=== PATIENT | male | born 1950 | race Two or more races ===

== ENCOUNTER 2017-11-01 10:47 | Emergency (ER) | payer MEDICARE ==
[2017-11-01] MEDS ORDERED: Sodium Chloride 0.9% 1,000 ML IV STA (11:11)
--- NOTE | 2017-11-01 11:13 | ED PDOC ---
Arrival/HPI - General Chief Complaint: Flu-like Symptoms Time Seen by Provider: 11/01/17 10:49 Historian: Patient - History of Present Illness Narrative History of Present Illness (Text): 11/01/17 11:10 A 67 year old male, whose past medical history includes diabetes and hypertension, presents to the emergency department complaining of nausea, vomiting and diarrhea for "a long period of time". Patient denies any fever, chills, abdominal pain, urinary symptoms, hematochezia, chest pain, shortness of breath or any other complaints. PMD: Dr. Grey Time/Duration: Other Context: Home Past Medical History - Provider Review Nursing Documentation Reviewed: Yes - Infectious Disease Hx of Infectious Diseases: None - Cardiac Hx Cardiac Disorders: Yes Hx Hypertension: Yes - Pulmonary Hx Respiratory Disorders: No - Neurological Hx Neurological Disorder: Yes Other/Comment: neuropathy - HEENT Hx HEENT Disorder: No - Renal Hx Renal Disorder: No - Endocrine/Metabolic Hx Endocrine Disorders: Yes Hx Diabetes Mellitus Type 2: Yes - Hematological/Oncological Hx Blood Disorders: No - Integumentary Hx Dermatological Disorder: No - Musculoskeletal/Rheumatological Hx Musculoskeletal Disorders: No - Gastrointestinal Hx Gastrointestinal Disorders: No - Genitourinary/Gynecological Hx Genitourinary Disorders: No - Psychiatric Hx Psychophysiologic Disorder: No Hx Substance Use: No - Anesthesia Hx Anesthesia: Yes Family/Social History - Physician Review Nursing Documentation Reviewed: Yes Family/Social History: No Known Family HX Smoking Status: Never Smoked Hx Alcohol Use: No Hx Substance Use: No Allergies/Home Meds Allergies/Adverse Reactions: Allergies No Known Allergies Allergy (Verified 11/01/17 10:53) Home Medications: Home Meds Medication Instructions Recorded Confirmed Aspirin [Adult Aspirin Regimen] 81 mg PO DAILY 11/01/17 11/01/17 Atorvastatin [Lipitor] 40 mg PO DAILY 11/01/17 11/01/17 Cholecalciferol (Vitamin D3) 1,000 mg PO DAILY 11/01/17 11/01/17 [Children's Vitamin D3] Ferrous Sulfate [Feosol] 1 tab PO BID 11/01/17 11/01/17 Furosemide [Lasix] 20 mg PO MWF 11/01/17 11/01/17 Gabapentin [Neurontin] 300 mg PO TID 11/01/17 11/01/17 GlipiZIDE [Glucotrol] 10 mg PO DAILY 11/01/17 11/01/17 Hydrochlorothiazide [Microzide] 25 mg PO DAILY 11/01/17 11/01/17 Insulin Aspart [Novolog Flexpen] 45 units SQ BID 11/01/17 11/01/17 Losartan [Cozaar] 100 mg PO DAILY 11/01/17 11/01/17 NIFEdipine [Procardia] 60 mg PO DAILY 11/01/17 11/01/17 Nortriptyline HCl [Pamelor] 50 mg PO HS 11/01/17 11/01/17 Omeprazole [Omeprazole] 20 mg PO BID 11/01/17 11/01/17 Sildenafil Citrate [Viagra] 25 mg PO PRN PRN 11/01/17 11/01/17 Syringe and Needle,Insulin,1Ml 1 ml SC 5XD 11/01/17 11/01/17 [Insulin Syringe] Review of Systems - Physician Review All systems were reviewed & negative as marked: Yes - Review of Systems Constitutional: absent: Fevers, Night Sweats Respiratory: absent: SOB Cardiovascular: absent: Chest Pain Gastrointestinal: Diarrhea, Nausea, Vomiting. absent: Abdominal Pain, Hematochezia Genitourinary Male: absent: Dysuria, Frequency, Hematuria, Urinary Output Changes Physical Exam Vital Signs Reviewed: Yes Vital Signs Temp Pulse Resp BP Pulse Ox 11/01/17 12:46 94 H 18 180/85 H 100 11/01/17 11:41 100.0 F H 11/01/17 11:19 98.3 F 11/01/17 11:09 98.3 F 117 H 22 185/97 H 100 Temperature: Afebrile Blood Pressure: Hypertensive Pulse: Tachycardic Respiratory Rate: Normal Appearance: Positive for: Well-Appearing, Non-Toxic, Comfortable Pain Distress: None Mental Status: Positive for: Alert and Oriented X 3 - Systems Exam Head: Present: Atraumatic, Normocephalic Pupils: Present: PERRL Extroacular Muscles: Present: EOMI Conjunctiva: Present: Normal Mouth: Present: Moist Mucous Membranes Neck: Present: Normal Range of Motion Respiratory/Chest: Present: Clear to Auscultation, Good Air Exchange. No: Respiratory Distress, Accessory Muscle Use Cardiovascular: Present: Normal S1, S2, Tachycardic. No: Murmurs Abdomen: Present: Normal Bowel Sounds. No: Tenderness, Distention, Peritoneal Signs Back: Present: Normal Inspection Upper Extremity: Present: Normal Inspection. No: Cyanosis, Edema Lower Extremity: Present: Normal Inspection. No: Edema Neurological: Present: GCS=15, CN II-XII Intact, Speech Normal Skin: Present: Warm, Dry, Normal Color. No: Rashes Psychiatric: Present: Alert, Oriented x 3, Normal Insight, Normal Concentration Medical Decision Making ED Course and Treatment: 11/01/17 11:10 Impression: A 67 year old male with nausea, vomiting and diarrhea Plan: -- Chest xray -- EKG -- Labs -- Urinalysis -- Influenza A B Stat -- Tylenol and IV fluids -- Reassess and disposition Progress Notes: EKG shows sinus tachycardia at 112 BPM. Interpreted by me. Report Date : 11/01/2017 12:30:01 Procedure: Chest xray Dictator : Bart Julien MD IMPRESSION: No active disease. Report Date : 11/01/2017 14:29:02 PROCEDURE: CT Abdomen and Pelvis without intravenous contrast Dictator : Bart Julien MD IMPRESSION: No acute findings 11/01/17 14:[address] Grey, who is aware of and in agreement with plan. Patients CT, imaging and labs are negative. Patient feels better and is in no acute distress. I have discussed the results and plan with the patient, who expresses understanding. Patient in agreement with plan to be discharged home. Patient is stable for discharge. Patient was instructed to follow up with physician or return if symptoms worsen or new concerning symptoms arise. - Lab Interpretations Lab Results: 11/01/17 11:05 11/01/17 11:05 Lab Results 11/01/17 11:30: Urine Color Yellow, Urine Appearance Clear, Urine pH 6.0, Ur Specific [place] 1.020, Urine Protein 100 H, Urine Glucose (UA) 250 H, Urine Ketones Negative, Urine Blood Moderate H, Urine Nitrate Negative, Urine Bilirubin Negative, Urine Urobilinogen 0.2, Ur Leukocyte Esterase Negative, Urine RBC 20 - 25, Urine WBC 0 - 2, Ur Epithelial Cells None, Urine Bacteria Many, Hyaline Casts 0 - 2, Coarse Granular Casts Trace H 11/01/17 11:05: Influenza Typ A,B (EIA) Negative for flu a/b 11/01/17 11:05: Sodium 137, Chloride 102, Potassium 4.9, Carbon Dioxide 24, Anion Gap 16, BUN 42 H, Creatinine 2.6 H, Est GFR ( Amer) 30, Est GFR ( Non-Af Amer) 25, Random Glucose 229 H, Calcium 9.9, Total Bilirubin 0.7, AST 55 , ALT 78 H, Alkaline Phosphatase 86, Lactate Dehydrogenase 597, Total Creatine Kinase 446 H, CK-MB (CK-2) 8.8 H, CK-MB (CK-2) % 2.0 L, Troponin I < 0.01, Total Protein 8.4 H, Albumin 4.7, Globulin 3.7, Albumin/Globulin Ratio 1.2, Amylase 87, Lipase 103 11/01/17 11:05: PT 13.0 H, INR 1.18 H, APTT 29.4 11/01/17 11:05: WBC 9.0, RBC 3.83, Hgb 10.9 L, Hct 33.3 L, MCV 86.9, MCH 28.5, MCHC 32.7, RDW 14.8 H, Plt Count 226, MPV 11.2 H, Gran % 89.3 H, Lymph % (Auto) 2.5 L, [place] % (Auto) 8.1 H, Eos % (Auto) 0.1 L, Baso % (Auto) 0.0, Gran # 8.06 H , Lymph # 0.2 L, [place] # 0.7 H, Eos # 0.0, Baso # 0.00, Neutrophils % (Manual) 88 H, Lymphocytes % (Manual) 8 L, Monocytes % (Manual) 4, Platelet Evaluation Normal, Hypochromasia Slight, Anisocytosis (manual) Slight 11/01/17 11:05: pO2 22 L, VBG pH 7.33, VBG pCO2 48.0, VBG HCO3 25.3, VBG Total CO2 26.8, VBG O2 Sat (Calc) 47.8, VBG Base Excess -1.1 L, VBG Potassium 5.1, Sodium 137.0, Chloride 103.0, Glucose 240 H, Lactate 1.7, FiO2 21.0, Venous Blood Potassium 5.1 I have reviewed the lab results: Yes - RAD Interpretation Radiology Orders: 11/01/17 11:10 CHEST PORTABLE [RAD] Stat 11/01/17 12:04 ABD & PELVIS PO CONTRAST ONLY [CT] Stat - Medication Orders Current Medication Orders: Discontinued Medications Acetaminophen (Tylenol 325mg Tab) 975 mg PO STAT STA Stop: 11/01/17 11:12 Last Admin: 11/01/17 11:19 Dose: 975 mg MAR Pain/Vitals Document 11/01/17 11:19 MS (Rec: 11/01/17 11:21 MS [id number]) Pain Reassessment Is This A Pain ReAssessment? No Sleep Is patient sleeping during reassessment? No Presence of Pain Presence of Pain No Vitals Temperature (97.6 F-99.6 F) 98.3 F Temperature Source Oral Sodium Chloride (Sodium Chloride 0.9%) 1,000 mls @ 999 mls/hr IV .Q1H1M STA Stop: 11/01/17 12:11 Last Admin: 11/01/17 11:13 Dose: 999 mls/hr eMAR Start Stop Document 11/01/17 11:13 MS (Rec: 11/01/17 11:14 MS [id number]) Intravenous Solution Start Date 11/01/17 Start Time 11:14 End Date 11/01/17 End time 12:14 Total Infusion Time 60 Ondansetron HCl (Zofran Inj) 4 mg IVP STAT STA Stop: 11/01/17 11:22 Last Admin: 11/01/17 11:35 Dose: 4 mg IVP Administration Document 11/01/17 11:35 MS (Rec: 11/01/17 11:35 MS [id number]) Charges for Administration # of IVP Administrations 1 - Scribe Statement The provider has reviewed the documentation as recorded by the Job Coelho Provider Scribe Attestation: All medical record entries made by the Scribe were at my direction and personally dictated by me. I have reviewed the chart and agree that the record accurately reflects my personal performance of the history, physical exam, medical decision making, and the department course for this patient. I have also personally directed, reviewed, and agree with the discharge instructions and disposition. Disposition/Present on Arrival - Present on Arrival Any Indicators Present on Arrival: No History of DVT/PE: No History of Uncontrolled Diabetes: No Urinary Catheter: No History of Decub. Ulcer: No History Surgical Site Infection Following: None - Disposition Have Diagnosis and Disposition been Completed?: Yes Diagnosis: Vomiting Disposition: HOME/ ROUTINE Disposition Time: 14:45 Patient Problems: Current Active Problems Problem Status Onset Vomiting Acute Condition: STABLE Discharge Instructions (ExitCare): Acute Nausea and Vomiting (ED), Acute Abdominal Pain (ED) Additional Instructions: follow up with specialist. return to er with worsening symptoms or concerns. Referrals: [employer] [facility], [Non-Staff] - Follow up with primary Gui Zamora DO [Staff Provider] - Follow up with primary Forms: [employer] (Mongolian)
[2017-11-01 11:30] LABS: VENOUS BLOOD GAS BASE EXCESS -1.1 mmol/L (0.0-2.0); VENOUS BLOOD GAS PO2 22 mm/Hg (30-55); VENOUS BLOOD PH 7.33 (7.32-7.43)
[2017-11-01 11:41] VITALS: TEMP 100
[2017-11-01 11:42] LABS: ALB/GLOB RATIO 1.2 (1.1-1.8); ALBUMIN 4.7 g/dL (3.0-4.8); ALT/SGPT 78 U/L (7-56); AMYLASE 87 U/L (35-125); AST/SGOT 55 U/L (17-59); BLOOD UREA NITROGEN 42 mg/dL (7-21); CALCIUM 9.9 mg/dL (8.4-10.5); GFR AFRICAN-AMERICAN 30; GFR NON-AFRICAN AMERICAN 25; LIPASE 103 U/L (23-300)
[2017-11-01 11:48] LABS: EOS % 0.1 % (1.5-5.0); GRAN # 8.06 (1.4-6.5); GRAN % 89.3 % (50.0-68.0); HEMOGLOBIN 10.9 g/dL (14.0-18.0); LYMPH # 0.2 (1.2-3.4); LYMPH % 2.5 % (22.0-35.0); MEAN CELL VOLUME 86.9 fl (80.0-105.0); MEAN CORPUSCULAR HEMOGLOBIN 28.5 pg (25.0-35.0); MEAN CORPUSCULAR HGB CONC 32.7 g/dl (31.0-37.0); MEAN PLATELET VOLUME 11.2 fl (7.0-11.0); MONO # 0.7 (0.1-0.6); MONO % 8.1 % (1.0-6.0); PLATELET COUNT 226 10^3/uL (120.0-450.0); RBC 3.83 10^6/uL (3.5-6.1); RED CELL DISTRIBUTION WIDTH 14.8 % (11.5-14.5)
[2017-11-01 11:50] LABS: TROPONIN I < 0.01 ng/mL
[2017-11-01 11:58] LABS: URINE BILIRUBIN NEGATIVE (NEGATIVE); URINE BLOOD MODERATE (NEGATIVE); URINE GLUCOSE (UA) 250 mg/dL (NEGATIVE); URINE LEUKOCYTE ESTERASE NEGATIVE Leu/uL (NEGATIVE); URINE NITRATE NEGATIVE (NEGATIVE); URINE PROTEIN 100 mg/dL (<30 mg/dL); URINE UROBILINOGEN 0.2 E.U./dL (<1 E.U./dL)
[2017-11-01 12:00] LABS: URINE APPEARANCE CLEAR (CLEAR); URINE COLOR YELLOW (YELLOW)
[2017-11-01 12:02] LABS: INR 1.18 (0.93-1.08); PARTIAL THROMBOPLASTIN TIME 29.4 Seconds (25.1-36.5)
[2017-11-01 12:04] LABS: CK-MB 8.8 ng/mL (0.0-3.6)
[2017-11-01] MEDS ORDERED: Iohexol 240 (50 ml) ONE (12:07)
[2017-11-01 12:10] LABS: URINE RBC 20 - 25 /hpf (0-2); URINE WBC 0 - 2 /hpf (0-6)
[2017-11-01 12:11] LABS: URINE BACTERIA MANY (NEG); URINE HYALINE CAST 0 - 2 /hpf
[2017-11-01 12:13] LABS: URINE COARSE GRANULAR CAST TRACE /hpf (0-2)
--- NOTE | 2017-11-01 12:31 | RAD ---
HISTORY: abd pain COMPARISON: No prior. FINDINGS: LUNGS: No active pulmonary disease. PLEURA: No significant pleural effusion identified, no pneumothorax apparent. CARDIOVASCULAR: Normal. OSSEOUS STRUCTURES: No significant abnormalities. VISUALIZED UPPER ABDOMEN: Normal. OTHER FINDINGS: None. IMPRESSION: No active disease.
[2017-11-01 12:46] VITALS: RESP 18
[2017-11-01 13:08] LABS: NEUTROPHIL 88 % (50.0-70.0)
[2017-11-01 13:09] LABS: ANISOCYTOSIS SLIGHT; HYPOCHROMIA SLIGHT; LYMPHOCYTE 8 % (22.0-35.0); MONOCYTE 4 % (1.0-6.0); PLATELET ESTIMATE NORMAL (NORMAL)
--- NOTE | 2017-11-01 14:30 | CT ---
PROCEDURE: CT Abdomen and Pelvis without intravenous contrast HISTORY: abd pain vomiting diarrhea COMPARISON: None. TECHNIQUE: Without contrast.. Contrast Dose: Radiation dose: Total exam DLP = 1258 mGy-cm. This CT exam was performed using one or more of the following dose reduction techniques: Automated exposure control, adjustment of the mA and/or kV according to patient size, and/or use of iterative reconstruction technique. FINDINGS: LOWER THORAX: Unremarkable. LIVER: Unremarkable. No gross lesion or ductal dilatation. GALLBLADDER AND BILE DUCTS: Unremarkable. PANCREAS: Unremarkable. No gross lesion or ductal dilatation. SPLEEN: Unremarkable. ADRENALS: Unremarkable. No mass. KIDNEYS AND URETERS: Unremarkable. No hydronephrosis. No solid mass. VASCULATURE: Unremarkable. No aortic aneurysm. BOWEL: Unremarkable. No obstruction. No gross mural thickening. APPENDIX: Unremarkable. Normal appendix. PERITONEUM: Unremarkable. No free fluid. No free air. LYMPH NODES: Unremarkable. No enlarged lymph nodes. BLADDER: Unremarkable. REPRODUCTIVE: Unremarkable. BONES: No acute fracture. OTHER FINDINGS: None. IMPRESSION: No acute findings
[2017-11-01 15:01] VITALS: BP 154/82; PULSE 91; O2SAT 98
--- NOTE | 2017-11-01 18:18 | CARD ---
APPROVED REPORT EKG Measurement Heart [id number] CT [id number] <Conclusion> Sinus tachycardia Right superior axis deviation Abnormal ECG
== END 2017-11-01 15:02 | disposition home or self-care (01) ==
LOC: ED 10:47
DX: R11.10 Vomiting, unspecified (principal); I10 Essential (primary) hypertension; E11.9 Type 2 diabetes mellitus without complications
CPT/HCPCS: 71010; 74176; 80053; 81001; 82150; 82550; 82553; 82803; 83615; 83690; 84484; 85025; 85610; 85730; 87804; 93005; 96361; 96374; 99285; J2405; J7040; Q9966

== ENCOUNTER 2018-05-08 20:43 | Emergency (ER) | payer MEDICARE ==
[2018-05-08 21:00] VITALS: TEMP 98
[2018-05-08] MEDS ORDERED: Sodium Chloride 0.9% 1,000 ML IV SCH (21:45)
--- NOTE | 2018-05-08 21:45 | ED PDOC ---
Arrival/HPI - General Chief Complaint: GI Problem Time Seen by Provider: 05/08/18 20:58 Historian: Patient - History of Present Illness Narrative History of Present Illness (Text): 05/08/18 21:40 Jeol Krueger is a 68 year old male, whose past medical history includes diabetes and hypertension, who presents to the Emergency department complaining of high blood pressure and vomiting. Patient states he has been experiencing nausea and vomiting over the past 3 days and notes he has been having trouble controlling his high blood pressure. Patient states he regularly takes Hydrochlorothiazide and Losartan, report he has only taken his HCTZ today as directed, with no significant relief. Patient notes he has experienced similar symptoms intermittently for over 1 year, was seen by GI, and had and endoscopy performed, which he states was grossly normal. Patient denies any fever, chills , chest pain, shortness of breath, diarrhea, urinary symptoms, back pain, neck pain, headache, dizziness, or any other complaints. PMD: Matilda Govea, [facility] Symptom Onset: Gradual Symptom Course: Unchanged, Intermittent Activities at Onset: Light Context: Home Past Medical History - Provider Review Nursing Documentation Reviewed: Yes - Infectious Disease Hx of Infectious Diseases: None - Cardiac Hx Cardiac Disorders: Yes Hx Hypertension: Yes - Pulmonary Hx Respiratory Disorders: No - Neurological Hx Neurological Disorder: Yes Other/Comment: neuropathy - HEENT Hx HEENT Disorder: No - Renal Hx Renal Disorder: No - Endocrine/Metabolic Hx Endocrine Disorders: Yes Hx Diabetes Mellitus Type 2: Yes - Hematological/Oncological Hx Blood Disorders: No - Integumentary Hx Dermatological Disorder: No - Musculoskeletal/Rheumatological Hx Musculoskeletal Disorders: No - Gastrointestinal Hx Gastrointestinal Disorders: No - Genitourinary/Gynecological Hx Genitourinary Disorders: No - Psychiatric Hx Psychophysiologic Disorder: No Hx Substance Use: No - Anesthesia Hx Anesthesia: Yes Family/Social History - Physician Review Nursing Documentation Reviewed: Yes Family/Social History: Unknown Family HX Smoking Status: Never Smoked Hx Alcohol Use: No Hx Substance Use: No Allergies/Home Meds Allergies/Adverse Reactions: Allergies No Known Allergies Allergy (Verified 11/01/17 10:53) Home Medications: Home Meds Medication Instructions Recorded Confirmed Aspirin [Adult Aspirin Regimen] 81 mg PO DAILY 11/01/17 11/01/17 Atorvastatin [Lipitor] 40 mg PO DAILY 11/01/17 11/01/17 Cholecalciferol (Vitamin D3) 1,000 mg PO DAILY 11/01/17 11/01/17 [Children's Vitamin D3] Ferrous Sulfate [Feosol] 1 tab PO BID 11/01/17 11/01/17 Furosemide [Lasix] 20 mg PO MWF 11/01/17 11/01/17 Gabapentin [Neurontin] 300 mg PO TID 11/01/17 11/01/17 GlipiZIDE [Glucotrol] 10 mg PO DAILY 11/01/17 11/01/17 Hydrochlorothiazide [Microzide] 25 mg PO DAILY 11/01/17 11/01/17 Insulin Aspart [Novolog Flexpen] 45 units SQ BID 11/01/17 11/01/17 Losartan [Cozaar] 100 mg PO DAILY 11/01/17 11/01/17 NIFEdipine [Procardia] 60 mg PO DAILY 11/01/17 11/01/17 Nortriptyline HCl [Pamelor] 50 mg PO HS 11/01/17 11/01/17 Omeprazole [Omeprazole] 20 mg PO BID 11/01/17 11/01/17 Sildenafil Citrate [Viagra] 25 mg PO PRN PRN 11/01/17 11/01/17 Syringe and Needle,Insulin,1Ml 1 ml SC 5XD 11/01/17 11/01/17 [Insulin Syringe] Review of Systems - Physician Review All systems were reviewed & negative as marked: Yes - Review of Systems Constitutional: Normal. absent: Fevers Eyes: Normal ENT: Normal Respiratory: Normal. absent: SOB, Cough Cardiovascular: Other (+high blood pressure). absent: Chest Pain Gastrointestinal: Nausea, Vomiting Genitourinary Male: Normal. absent: Dysuria, Frequency, Hematuria, Urinary Output Changes Musculoskeletal: Normal. absent: Back Pain, Neck Pain Skin: Normal. absent: Rash Neurological: Normal. absent: Headache, Dizziness Endocrine: Normal Hemo/Lymphatic: Normal Psychiatric: Normal Physical Exam Vital Signs Reviewed: Yes Vital Signs Temp Pulse Resp BP Pulse Ox 05/09/18 01:17 78 20 150/82 100 05/08/18 23:36 79 18 154/92 H 100 05/08/18 20:56 98.0 F 87 18 196/97 H 98 Temperature: Afebrile Blood Pressure: Hypertensive Pulse: Regular Respiratory Rate: Normal Appearance: Positive for: Well-Appearing, Non-Toxic, Comfortable Pain Distress: None Mental Status: Positive for: Alert and Oriented X 3 - Systems Exam Head: Present: Atraumatic, Normocephalic Pupils: Present: PERRL Extroacular Muscles: Present: EOMI Conjunctiva: Present: Normal Mouth: Present: Moist Mucous Membranes Neck: Present: Normal Range of Motion Respiratory/Chest: Present: Clear to Auscultation, Good Air Exchange. No: Respiratory Distress, Accessory Muscle Use Cardiovascular: Present: Regular Rate and Rhythm, Normal S1, S2. No: Murmurs Abdomen: No: Tenderness, Distention, Peritoneal Signs Back: Present: Normal Inspection Upper Extremity: Present: Normal Inspection. No: Cyanosis, Edema Lower Extremity: Present: Edema (Pitting edema to bilateral lower extremities) Neurological: Present: GCS=15, CN II-XII Intact, Speech Normal Skin: Present: Warm, Dry, Normal Color. No: Rashes Psychiatric: Present: Alert, Oriented x 3, Normal Insight, Normal Concentration Medical Decision Making ED Course and Treatment: 05/08/18 21:40 Impression: 68 year old male complaining of nausea, vomiting, and high blood pressure x3 days. Plan: -- CT Abdomen and Pelvis with IV contrast -- Labs, lipase, cardiac enzymes -- IV fluids -- Zofran -- Cozaar -- Reassess and disposition Prior Visits: Notes and results from previous visits were reviewed. On 11/01/2017, pt was seen in the Emergency department for nausea, vomiting, and diarrhea. Pt was d/c home. Progress Notes: Reviewed EKG, NSR at 78 bpm. LAD. No acute changes from EKG on 10/2017. 05/09/18 00:29 CT Abdomen and Pelvis shows: The liver, spleen, gallbladder and pancreas appear grossly normal on this non- contrast study. There is bilateral perinephric stranding unchanged from prior. No hydronephrosis. No obstructing calculi. There is an exophytic left renal cyst unchanged from prior. Colonic diverticulosis is present. A normal appendix is identified axial series 3 images 127 through 134. Metallic density in the prostate unchanged. Skin thickening of the anterior lower abdomen/upper pelvis w stranding in the underlying fat unchanged. IMPRESSION: No acute findings. Dictated and Authenticated by: Shanique Killian MD 05/09/2018 12:22 AM Eastern Time ([place] & [place]) 05/09/18 01:15 On re-evaluation, patient feels better and is in no acute distress. I have discussed the results and plan with the patient, who expresses understanding. Patient in agreement with plan to be discharged home. Patient is stable for discharge. Patient was instructed to follow up with physician or return if symptoms worsen or new concerning symptoms arise. - Lab Interpretations Lab Results: 05/08/18 21:30 05/08/18 21:30 Lab Results 05/08/18 21:30: Sodium 141, Potassium 4.3, Chloride 101, Carbon Dioxide 29, Anion Gap 16, BUN 40 H, Creatinine 3.0 H, Est GFR ( Amer) 25, Est GFR ( Non-Af Amer) 21, Random Glucose 103, Calcium 9.5, Magnesium 2.1, Total Bilirubin 0.6, AST 52, ALT 69 H, Alkaline Phosphatase 96, Lactate Dehydrogenase 560, Total Creatine Kinase 321 H, CK-MB (CK-2) 2.9, CK-MB (CK-2) % Cancelled, Troponin I < 0.01, Total Protein 8.2, Albumin 4.4, Globulin 3.8, Albumin/ Globulin Ratio 1.2, Lipase 83 05/08/18 21:30: WBC 6.7 D, RBC 3.67, Hgb 9.8 L, Hct 30.5 L, MCV 83.1 D, MCH 26.7, MCHC 32.1, RDW 14.7 H, Plt Count 213, MPV 10.4, Gran % 68.4 H, Lymph % ( Auto) 20.2 L, [place] % (Auto) 10.4 H, Eos % (Auto) 0.9 L, Baso % (Auto) 0.1, Gran # 4.59, Lymph # (Auto) 1.4, [place] # (Auto) 0.7 H, Eos # (Auto) 0.1, Baso # (Auto ) 0.01 I have reviewed the lab results: Yes - RAD Interpretation Radiology Orders: 05/08/18 22:22 ABD & PELVIS W/O PO OR IV CONT [CT] Stat Animal Care Attendant: Radiologist - EKG Interpretation Interpreted by ED Physician: Yes Type: 12 lead EKG - Medication Orders Current Medication Orders: Discontinued Medications Sodium Chloride (Sodium Chloride 0.9%) 1,000 mls @ 100 mls/hr IV .Q10H BREE Last Admin: 05/08/18 21:49 Dose: 100 mls/hr eMAR Start Stop Document 05/08/18 21:49 CNR (Rec: 05/08/18 21:50 CNR [id number]) Intravenous Solution Start Date 05/08/18 Start Time 21:50 Losartan Potassium (Cozaar) 100 mg PO STAT STA Stop: 05/08/18 21:42 Last Admin: 05/08/18 21:50 Dose: 100 mg Metoclopramide HCl (Reglan) 10 mg IVP STAT STA Stop: 05/09/18 00:03 Last Admin: 05/09/18 00:08 Dose: 10 mg IVP Administration Document 05/09/18 00:08 CNR (Rec: 05/09/18 00:08 CNR [id number]) Charges for Administration # of IVP Administrations 1 Ondansetron HCl (Zofran Inj) 8 mg IVP STAT STA Stop: 05/08/18 21:42 Last Admin: 05/08/18 21:50 Dose: 8 mg IVP Administration Document 05/08/18 21:50 CNR (Rec: 05/08/18 21:50 CNR [id number]) Charges for Administration # of IVP Administrations 1 - Scribe Statement The provider has reviewed the documentation as recorded by the Job Deluca Provider Scribe Attestation: All medical record entries made by the Scribe were at my direction and personally dictated by me. I have reviewed the chart and agree that the record accurately reflects my personal performance of the history, physical exam, medical decision making, and the department course for this patient. I have also personally directed, reviewed, and agree with the discharge instructions and disposition. Disposition/Present on Arrival - Present on Arrival Any Indicators Present on Arrival: No History of DVT/PE: No History of Uncontrolled Diabetes: No Urinary Catheter: No History of Decub. Ulcer: No History Surgical Site Infection Following: None - Disposition Have Diagnosis and Disposition been Completed?: Yes Diagnosis: Vomiting, Hypertension Disposition: HOME/ ROUTINE Disposition Time: 00:25 Condition: IMPROVED Discharge Instructions (ExitCare): High Blood Pressure (DC), Nausea and Vomiting, Adult (DC) Additional Instructions: JOEL KRUEGER, thank you for letting us take care of you today. The emergency medical care you received today was directed at your acute symptoms. If you were prescribed any medication, please fill it and take as directed. It may take several days for your symptoms to resolve. Return to the Emergency Department if your symptoms worsen, do not improve, or if you have any other problems. Please contact your doctor or call one of the physicians/clinics you have been referred to that are listed on the Patient Visit Information form that is included in your discharge packet. Bring any paperwork you were given at discharge with you along with any medications you are taking to your follow up visit. Our treatment cannot replace ongoing medical care by a primary care provider outside of the emergency department. Thank you for allowing the [facility] team to be part of your care today. Take all your medication as prescribed every day. Follow up with your primary care doctor in 2-3 days for re-evaluation and further management. Prescriptions: Ondansetron ODT [Zofran ODT] 8 mg PO Q8 PRN #20 odt PRN Reason: Nausea/Vomiting Referrals: [facility], [Non-Staff] - Follow up with primary Forms: [employer] (Lao)
[2018-05-08 21:57] LABS: BASO # 0.01 K/mm3 (0.0-2.0); BASO % 0.1 % (0.0-3.0); EOS # 0.1 (0.0-0.7); EOS % 0.9 % (1.5-5.0); GRAN # 4.59 (1.4-6.5); GRAN % 68.4 % (50.0-68.0); HEMOGLOBIN 9.8 g/dL (14.0-18.0); LYMPH # 1.4 (1.2-3.4); LYMPH % 20.2 % (22.0-35.0); MEAN CELL VOLUME 83.1 fl (80.0-105.0); MEAN CORPUSCULAR HEMOGLOBIN 26.7 pg (25.0-35.0); MEAN CORPUSCULAR HGB CONC 32.1 g/dl (31.0-37.0); MEAN PLATELET VOLUME 10.4 fl (7.0-11.0); MONO # 0.7 (0.1-0.6); MONO % 10.4 % (1.0-6.0); RBC 3.67 10^6/uL (3.5-6.1); RED CELL DISTRIBUTION WIDTH 14.7 % (11.5-14.5); WHITE BLOOD COUNT 6.7 10^3/ul (4.5-11.0)
[2018-05-08 22:04] LABS: ALB/GLOB RATIO 1.2 (1.1-1.8); ALBUMIN 4.4 g/dL (3.0-4.8); ALT/SGPT 69 U/L (7-56); AST/SGOT 52 U/L (17-59); BLOOD UREA NITROGEN 40 mg/dL (7-21); CALCIUM 9.5 mg/dL (8.4-10.5); GFR AFRICAN-AMERICAN 25; GFR NON-AFRICAN AMERICAN 21; LIPASE 83 U/L (23-300)
[2018-05-08 22:15] LABS: TROPONIN I < 0.01 ng/mL
[2018-05-08 22:20] LABS: CK-MB 2.9 ng/mL (0.0-3.6)
[2018-05-08 23:37] VITALS: O2SAT 100
[2018-05-09 01:18] VITALS: BP 150/82; PULSE 78; RESP 20
--- NOTE | 2018-05-09 08:40 | CT ---
PROCEDURE: CT Abdomen and Pelvis without intravenous contrast HISTORY: diffuse abd tenderness with vomiting COMPARISON: None. TECHNIQUE: Technique. Contrast dose: Radiation dose: Total exam DLP = mGy-cm. This CT exam was performed using one or more of the following dose reduction techniques: Automated exposure control, adjustment of the mA and/or kV according to patient size, and/or use of iterative reconstruction technique. FINDINGS: LOWER THORAX: Unremarkable. LIVER: Unremarkable. No gross lesion or ductal dilatation. GALLBLADDER AND BILE DUCTS: Unremarkable. PANCREAS: Unremarkable. No gross lesion or ductal dilatation. SPLEEN: Unremarkable. ADRENALS: Unremarkable. No mass. KIDNEYS AND URETERS: 4.2 centimeter left renal cyst. . No hydronephrosis. No solid mass. VASCULATURE: Unremarkable. No aortic aneurysm. BOWEL: Unremarkable. No obstruction. No gross mural thickening. APPENDIX: Unremarkable. Normal appendix. PERITONEUM: Unremarkable. No free fluid. No free air. LYMPH NODES: Unremarkable. No enlarged lymph nodes. BLADDER: Unremarkable. REPRODUCTIVE: Unremarkable. BONES: No acute fracture. OTHER FINDINGS: None. IMPRESSION: Left renal cyst
--- NOTE | 2018-05-09 09:18 | CARD ---
APPROVED REPORT EKG Measurement Heart [id number] <Conclusion> Normal sinus rhythm Left axis deviation/LAHB Nonspecific intraventricular conduction delay PRWP No change except the rate is slower
== END 2018-05-09 01:17 | disposition home or self-care (01) ==
LOC: ED 20:43
DX: R11.2 Nausea with vomiting, unspecified (principal); I10 Essential (primary) hypertension; E11.9 Type 2 diabetes mellitus without complications
CPT/HCPCS: 74176; 80053; 82550; 82553; 83615; 83690; 83735; 84484; 85025; 93005; 96374; 96375; 99284; J2405; J2765; J7030